=== PATIENT | female | born 1955 | race Caucasian/White ===

== ENCOUNTER → 2020-01-09 | Outpatient (CLI) | payer MEDICARE, MEDICAID ==
--- NOTE | 2020-01-09 14:33 | RADIOLOGY REPORT (SQ) ---
EXAM DESCRIPTION: CT LUNG CANCER SCREENING IMAGES COMPLETED DATE/TIME: 01/09/2020 10:40 am REASON FOR STUDY: Z87.891 PERSONAL HISTORY OF NICOTINE DEPENDENCE Z87.891 PERSONAL HISTORY OF NICOT INE DEPENDENCE Has the patient had a Chest CT scan within the past year? N Was the patient offered tobacco cessation counseling? N Was the patient engaged in shared decision making for this test? Y Does the patient have signs or symptoms of Lung Cancer? N Is the patient a smoker? N How many pack years? 40 How many years since quitting smoking? 1.5 Patients age: 64 COMPARISON: None. TECHNIQUE: Low Dose CT scan performed of the chest without intravenous contrast for purposes of scre ening for lung cancer. Images reviewed with lung, soft tissue and bone windows. Reconstructed coron al and sagittal MPR images reviewed. All images stored on PACS. All CT scanners at this facility use dose modulation, iterative reconstruction, and/or weight based d osing when appropriate to reduce radiation dose to as low as reasonably achievable (ALARA). [facility]: Dose Right [facility]: CareDose [facility]: Dose Right [facility]: Teradose 4D [facility]: [employer] RADIATION DOSE: CT Rad equipment meets quality standard of care and radiation dose reduction techniq ues were employed. CTDIvol: 2.1 mGy. DLP: 86 mGy-cm. LIMITATIONS: No technical limitations. FINDINGS: LUNG NODULES: Within the left upper lobe (series 3, image 80) there is a 1.3 x 0.7 x 0.9 cm solid nodule which appears to be associated with a degree of scarring. Additionally, within the r ight lower lobe (series 3, image 214) there is a 1.4 x 1.2 x 1.2 cm solid nodule which appears be ass ociated with a degree of scarring. REMAINING LUNGS AND PLEURA: No pleural effusions or calcifications. No pneumothorax. Centrilobu lar emphysematous changes and scarring are seen throughout the lungs. HILAR AND MEDIASTINAL STRUCTURES: No identified masses. No abnormal nodes. HEART AND VASCULAR STRUCTURES: No aortic aneurysm. A small pericardial effusion is present. No car diac devices. CORONARY ARTERY CALCIFICATIONS: Marked calcifications. UPPER ABDOMEN, THYROID, BONES, OTHER SOFT TISSUES: Likely left adrenal nodule. Osteopenia with multi ple vertebral body compression deformities, chronic. IMPRESSION: SUSPICIOUS LESIONS IN THE LUNGS. NO OTHER CLINICALLY SIGNIFICANT/POTENTIALLY CLINICALLY SIGNIFICANT FINDINGS LUNGRADS: LUNGRADS: 4A SUSPICIOUS; FINDINGS FOR WHICH ADDITIONAL DIAGNOSTIC TESTING AND/OR TISSUE SA MPLING IS RECOMMENDED. MODIFIER: NONE. RECOMMENDATION: Follow up with LDCT in 3 months; PET/CT may be used when there is a ? 8 mm solid com ponent. COMMENT: CRITERIA: Solid nodule(s): ? 8 mm to < 15 mm at baseline OR growing < 8 mm OR new 6 mm to < 8 mm. Part solid nodule(s): ? 6 mm total diameter with solid component ? 6 mm to < 8 mm OR with a new or gr owing < 4 mm solid component. Endobronchial nodule. TECHNICAL DOCUMENTATION: JOB ID: [id number] Quality ID # [id number]: Final reports with documentation of one or more dose reduction techniques (e.g., Au tomated exposure control, adjustment of the mA and/or kV according to patient size, use of iterative reconstruction technique) 2010 [facility] Radiology Reading location - IP/workstation name: [email or web address]
== END ==
LOC: RAD 10:12
PROVIDERS: ATTEND Registered Nurse
DX: Z12.2 Encounter for screening for malignant neoplasm of respiratory organs (principal); R91.1 Solitary pulmonary nodule; Z87.891 Personal history of nicotine dependence; I25.10 Atherosclerotic heart disease of native coronary artery without angina pectoris
CPT/HCPCS: G0297

== ENCOUNTER → 2020-02-26 | Outpatient (CLI) | payer MEDICARE, MEDICAID ==
--- NOTE | 2020-02-27 11:45 | RADIOLOGY REPORT (SQ) ---
EXAM DESCRIPTION: PET CT SKULL/THIGH IMAGES COMPLETED DATE/TIME: 02/26/2020 9:01 pm REASON FOR STUDY: R91.8 OTHER NONSPECIFIC ABNORMAL FINDING OF LUNG FIELD R91.8 OTHER NONSPECIFIC AB NORMAL FINDING OF LUNG FIELD COMPARISON: CT of the chest without contrast from 01/09/2020. RADIONUCLIDE AND DOSE: 9.96 mCi F18 FDG The route of agent administration: Intravenous FASTING BLOOD SUGAR: 112 mg/dl CONTRAST TYPE AND DOSE: No CT contrast given. TECHNIQUE: Blood glucose level was verified. Above dose of FDG was injected intravenously. 2-D seg mented attenuation correction images were obtained from the base of the skull to the midthighs. Nonc ontrast CT images were obtained for attenuation correction and fusion with emission images. CT image s were performed without oral or intravenous contrast and are not sensitive for parenchymal lesions. A series of overlapping emission PET images were obtained. Images reviewed and manipulated at [facility] work station by the radiologist. Images stored on PACS. LIMITATIONS: None. FINDINGS: HEAD AND NECK: The increased asymmetric uptake within the right tonsillar sinus (maximum S UV of 4.5) has no discrete anatomic correlate on CT. The symmetric uptake in the posterior nasophary nx is nonspecific as there is also no anatomic abnormality on the nondiagnostic CT. The asymmetric u ptake within the sternocleidomastoids and levator scapulae muscles could be due to motion during acqu isition of the PET. CHEST: There is increased asymmetric uptake within the right pectoralis muscle without an anatomic co rrelate on CT. The nodular opacities described on the correlative CT from 01/09/2020 in the left uppe r lobe and right lower lobe demonstrate no abnormal FDG uptake. In addition, the configuration of th e nodular opacities is different - less masslike and more linear. ABDOMEN AND PELVIS: The liver demonstrates homogeneous FDG uptake with an average SUV of 1.8. There is expected physiologic activity throughout the gastrointestinal and genitourinary tracts. There are no areas of abnormal metabolic activity in the abdomen and pelvis PROXIMAL LOWER EXTREMITIES: No areas of abnormal metabolic activity in the soft tissues of the lower extremities. BONES: No areas of abnormal metabolic activity in the skeleton. ADDITIONAL CT FINDINGS: Upper lobe predominant emphysema. There is no mediastinal or hilar adenopath y. There is avot-[id number] atherosclerotic calcification of the coronary arteries. There is no pe ricardial effusion. There is no evidence of hepatic steatosis. There is a hiatal hernia. There is aortoiliac atherosclerotic calcification. There is no aneurysmal dilatation of the abdominal aorta. There is colonic diverticulosis without diverticulitis. The uterus is surgically absent. OTHER: No other findings. IMPRESSION: 1. The nodular opacities described on the correlative CT from 01/09/2020 in the left uppe r lobe and right lower lobe demonstrate no abnormal FDG uptake. In addition, the configuration of the nodular opacities is different - less masslike and more linear. These opacities likely represent sc ars. 2. Increased asymmetric uptake within the right tonsillar sinus (maximum SUV of 4.5) that has no disc rete anatomic correlate on CT. Consider correlation with visual inspection. TECHNICAL DOCUMENTATION: JOB ID: [id number] 2010 [employer]- All Rights Reserved Reading location - IP/workstation name: [email or web address]
== END ==
LOC: RAD 09:47
PROVIDERS: ATTEND Thoracic Surgery (Cardiothoracic Vascular Surgery)
DX: C34.11 Malignant neoplasm of upper lobe, right bronchus or lung (principal)
CPT/HCPCS: 78815; A9552